=== PATIENT | male | born 1985 | race Caucasian/White ===

== ENCOUNTER 2018-04-09 12:42 | Emergency (ER) | payer MEDICAID, SELFPAY ==
[2018-04-09 12:47] VITALS: BP 101/71; PULSE 62; RESP 16; TEMP 36.7; O2SAT 97
--- NOTE | 2018-04-09 13:29 | W.ED.GENAD ---
Discharge Plan Disposition Patient Disposition: HOME Discharge Details Chief Complaint: DentalOral Clinical Impression: Dental infection Primary Care Provider: Jonah Arriaga ED Provider: Manpreet Gaffney Home Meds and New Rx's Prescriptions: New clindamycin HCl 150 mg capsule 450 mg PO TID 7 Days Qty: 63 RF: 0 Continue medical marijuana 1 pipe PO BID PRNQty: 1 RF: 5 cholecalciferol (vitamin D3) [D3-1999] 2,000 UNIT capsule 2,000 unit PO DAILY Qty: 90 RF: 3 glatiramer 40 mg/mL syringe 40 mg SC .three times per week Qty: 12 RF: 12 acetaminophen 325 mg Tablet 2 tab PO Q4H PRNRF: 0 Discharge Instructions Instructions: Dental Abscess (ED) Additional Instructions: Please contact your primary care physician and dentist to arrange follow-up. Return to the ER for any worsening or new concerning symptoms. Referrals: Jonah Arriaga [Primary Care Provider] - Medical Decision Making 32yo m with dental infection. No palpable abscess to I/D. PCN allergy. Will start clindamycin. Follow-up dentist. HPI General Mode of arrival: ambulatory. Date/Time Provider Initiated Documentation: 04/09/18 13:10. Limitations to Documentation: no limitations. Information obtained by: patient. HPI Narrative: 32-year-old male with history of MS, here with dental infection. Patient notes that he has had a cyst in his left upper incisor adjacent to tooth #10, for weeks to months. He thinks he sustained this after a dental lidocaine injection. The cyst ruptured yesterday and was draining. Draining has stopped. He denies pain but patient notes that he does not typically feel pain with his MS. He has no associated fever or swelling. Related Data Home Medications Medication Instructions Recorded Confirmed cholecalciferol (vitamin D3) 2,000 unit PO DAILY #90 cap 02/03/18 04/09/18 [D3-1999] glatiramer 40 mg/mL subcutaneous 40 mg SC .three times per week #12 03/23/18 04/09/18 syringe ml acetaminophen 2 tab PO Q4H PRN 04/09/18 04/09/18 clindamycin HCl 450 mg PO TID 7 Days #63 cap 04/09/18 Previous Rx's Medication Instructions Recorded cholecalciferol (vitamin D3) 2,000 unit PO DAILY #90 cap 02/03/18 [D3-2000] glatiramer 40 mg/mL subcutaneous 40 mg SC .three times per week #12 03/23/18 syringe ml clindamycin HCl 450 mg PO TID 7 Days #63 cap 04/09/18 Allergies Allergy/AdvReac Type Severity Reaction Status Date / Time Penicillins Allergy Severe see note Unverified 04/09/18 12:54 lactose AdvReac Intermediate GI distress Unverified 04/09/18 12:54 General Stated Complaint: DentalOral MATILDE: 4 Review of Systems Constitutional Denies fever(s) ENT Reports as per H[facility] Family History Mother Depression Father No problems noted. Sister No problems noted. Grandfather No problems noted. Grandfather Essential hypertension Heart disease Hyperlipidemia Cerebrovascular accident Asthma Grandmother Personal history of malignant neoplasm Grandmother Diabetes Asthma Son Growth hormone insufficiency Son No problems noted. Family History ADHD (attention deficit hyperactivity disorder) Alcohol abuse Anxiety Depression Medical History Multiple sclerosis (Chronic) Social History Smoking/Tobacco Use Status: Current-Occasional Exam Const General: cooperative and no acute distress HENMT Head: normocephalic and atraumatic Face and sinus: normal facial exam Mouth: moist mucous membranes Teeth and gingiva: poor dentition Throat: posterior oropharynx normal Other: dental caries noted, tooth #10 with hole, no palpable fluctuance Neck Neck: trachea midline and supple Resp Auscultation: clear to auscultation bilaterally, no rales, no rhonchi and no wheezes Cardio Jugular venous pressure: no JVD Rate: regular rate and not tachycardic Rhythm: regular rhythm Heart Sounds: no murmurs Skin General skin exam: no rashes or lesions noted Neuro General: alert, awake, oriented x3 and tone normal Course Vital Signs Temperature 36.7 C 04/09/18 12:47 Pulse 62 04/09/18 12:47 Respiratory Rate 16 04/09/18 12:47 Blood Pressure 101/71 04/09/18 12:47 Pulse Oximetry 97 04/09/18 12:47 Temperature 36.7 C 04/09/18 12:47 Temperature Source Temporal Artery Scan 04/09/18 12:47 Pulse 62 04/09/18 12:47 Respiratory Rate 16 04/09/18 12:47 Respiratory Effort 04/09/18 12:51 Blood Pressure 101/71 04/09/18 12:47 Blood Pressure Position Sitting 04/09/18 12:47 Pulse Oximetry 97 04/09/18 12:47 Oxygen Delivery Method Room Air 04/09/18 12:47 Oxygen Flow Rate 0 04/09/18 12:47 Pain Level 0 04/09/18 12:47 Comment 04/09/18 12:47
[2018-04-09 13:41] VITALS: BP 101/71; PULSE 62; RESP 16; TEMP 36.7; O2SAT 97
== END 2018-04-09 13:41 | disposition home or self-care (01) ==
PROVIDERS: Emergency Provider Student in an Organized Health Care Education/Training Program; PCP Family Medicine
DX: K04.7 Periapical abscess without sinus (principal); F17.210 Nicotine dependence, cigarettes, uncomplicated
CPT/HCPCS: 99283

== ENCOUNTER 2018-05-15 00:51 | Outpatient (CLI) | payer MEDICAID, SELFPAY ==
--- NOTE | 2018-05-15 13:48 | DI.MRI_ITS ---
SYMPTOMS/DIAGNOSIS: WORSENING OCT FINDINGS, MULTIPLE SCLEROSIS, G35 MRI OF THE BRAIN: Pre and post contrast examination was performed. Comparison 11/27/17. There are again seen several periventricular white matter lesions on the T 2 and FLAIR images. These appear stable compared to the prior examination. No new white matter lesions are seen. No enhancement of the lesions is noted following contrast administration. The diffusion weighted images show no evidence of an acute infarct. No intracranial hemorrhage is seen. No intracranial mass is present. The ventricles and sulci are stable. The pituitary gland appears grossly unremarkable. IMPRESSION: Stable white matter lesions. No abnormal enhancement or new lesions are identified at this time.
[2018-05-15] MEDS: Gadoterate meglumine 20 ML VIAL 11 ML IVP (14:53)
== END 2018-05-15 01:11 ==
PROVIDERS: PCP Family Medicine; Visit Provider Psychiatry & Neurology Neurology
DX: G35 Multiple sclerosis (principal)
CPT/HCPCS: 70553

== ENCOUNTER 2018-12-17 08:59 | Outpatient (CLI) | payer MEDICARE, MEDICAID, SELFPAY ==
[2018-12-17 10:56] LABS: Folate 17.3 ng/mL (8.6-20.0); Vitamin B12 590 pg/mL (193-986)
[2018-12-20 11:07] LABS: Thiamine (Vitamin B1), WB 125 nmol/L (70-180)
[2018-12-23 09:24] LABS: NMO/AQP4 IgG FACS Negative (Negative)
[2018-12-24 13:15] LABS: MOG FACS, S Negative (Negative)
== END 2018-12-17 09:19 ==
PROVIDERS: PCP Family Medicine; Visit Provider Psychiatry & Neurology Neurology
DX: H46.9 Unspecified optic neuritis (principal); G35 Multiple sclerosis; G62.9 Polyneuropathy, unspecified
CPT/HCPCS: 36415; 86255; 82607; 82746; 83891; 83892; 83894; 83898; 83909; 83912; 84425

== ENCOUNTER 2018-12-29 09:50 | Outpatient (CLI) | payer MEDICARE, MEDICAID, SELFPAY | END 2018-12-29 10:10 | PROVIDERS: PCP Family Medicine; Visit Provider Psychiatry & Neurology Neurology | DX: G35 Multiple sclerosis (principal); H46.8 Other optic neuritis | CPT/HCPCS: 36415; 81440; 83891; 83892; 83894; 83898; 83909; 83912 ==

== ENCOUNTER 2018-12-31 09:00 | Outpatient (CLI) | payer MEDICARE, MEDICAID, SELFPAY ==
[2019-01-12 13:14] LABS: LHON mtDNA Evaluation Negative
== END 2018-12-31 09:20 ==
PROVIDERS: PCP Family Medicine; Visit Provider Psychiatry & Neurology Neurology
DX: G35 Multiple sclerosis (principal); H46.8 Other optic neuritis
CPT/HCPCS: 81401; 83891; 83892; 83894; 83898; 83909; 83912

== ENCOUNTER 2019-05-19 01:16 | Outpatient (CLI) | payer MEDICARE, SELFPAY ==
--- NOTE | 2019-05-19 14:06 | DI.MRI_ITS ---
EXAM: MR BRAIN WO/W CLINICAL HISTORY: MS; stable G35. TECHNIQUE: Multiplanar multisequence MRI was performed. Post gadolinium T1 axial and coronal sequen maxx were also performed. COMPARISON: 15 May 2018. FINDINGS: There are stable areas of high signal in the periventricular white matter. No new lesions are ident ified. There are no abnormal lead enhancing lesions. Ventricles remain normal in size. There is no ev idence of hemorrhage. The vascular flow voids appear intact. The orbits, pituitary, sinuses and mast oid air cells are unremarkable. IMPRESSION: Stable white matter lesions consistent the patient's history of multiple sclerosis.
[2019-05-19] MEDS: Normal Saline Flush 10 ML SYR IVP (14:25)
[2019-05-19] MEDS: Gadoterate meglumine 20 ML VIAL 12 ML IVP (14:26)
== END 2019-05-19 01:36 ==
PROVIDERS: PCP Family Medicine; Visit Provider Psychiatry & Neurology Neurology
DX: G35 Multiple sclerosis (principal)
CPT/HCPCS: 70553

== ENCOUNTER → 2019-06-22 12:20 | Outpatient (BNVA) | payer MEDICARE, SELFPAY | PROVIDERS: PCP Family Medicine; Referring Provider Family Medicine; Visit Provider Psychiatry & Neurology Neurology | DX: G35 Multiple sclerosis (principal); F41.9 Anxiety disorder, unspecified; H46.9 Unspecified optic neuritis | CPT/HCPCS: 99214 ==

== ENCOUNTER → 2020-05-24 08:15 | Outpatient (BNVA) | payer MEDICARE, SELFPAY | PROVIDERS: PCP Family Medicine; Referring Provider Family Medicine; Visit Provider Psychiatry & Neurology Neurology | DX: G35 Multiple sclerosis (principal); F41.9 Anxiety disorder, unspecified; H46.9 Unspecified optic neuritis | CPT/HCPCS: 99213; 99442 ==

== ENCOUNTER → 2021-01-31 09:26 | Outpatient (BNVA) | payer OTHER, SELFPAY | PROVIDERS: PCP Family Medicine; Referring Provider Family Medicine; Visit Provider Psychiatry & Neurology Neurology | DX: G35 Multiple sclerosis (principal); H46.9 Unspecified optic neuritis; F41.9 Anxiety disorder, unspecified | CPT/HCPCS: 99214 ==

== ENCOUNTER → 2021-02-23 02:57 | Outpatient (CLI) | payer OTHER, SELFPAY ==
--- NOTE | 2021-02-23 07:06 | DI.MRI_ITS ---
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 CONTRAST MATERIAL: IV Contrast: 11 ML of Dotarem contrast administered. COMPARISON: MR MR BRAIN WO/W from 05/19/2019 FINDINGS: VENTRICLES AND EXTRA AXIAL SPACES: Normal in size and morphology for the patient's age. HEMORRHAGE: None. CEREBRAL PARENCHYMA: No focus of restricted diffusion to suggest acute infarct. No space-occupying le shreyas identified. There are stable white matter lesions seen on the FLAIR and T2 weighted images. No enhancement is seen following contrast administration. No new white matter lesions are present. MIDLINE SHIFT: None. BRAINSTEM/CEREBELLUM: Normal. CALVARIUM: Normal. ENHANCEMENT: No suspicious enhancement identified. VISUALIZED PARANASAL SINUSES/MASTOIDS: Clear. [place]: Normal flow void. PITUITARY GLAND: Unremarkable. OTHER FINDINGS: The orbits and retro-orbital soft tissues appear grossly unremarkable. IMPRESSION: Stable white matter lesions since 05/19/2019. DATA REPOSITORY:
[2021-02-23] MEDS: Normal Saline Flush 10 ML SYR IVP (11:11)
[2021-02-23] MEDS: Gadoterate meglumine 20 ML VIAL 11 ML IVP (11:12)
== END ==
PROVIDERS: PCP Family Medicine; Visit Provider Psychiatry & Neurology Neurology
DX: G35 Multiple sclerosis (principal); H46.9 Unspecified optic neuritis
CPT/HCPCS: 70553

== ENCOUNTER → 2021-08-08 11:16 | Outpatient (BNVA) | payer OTHER, SELFPAY | PROVIDERS: PCP Family Medicine; Visit Provider Psychiatry & Neurology Neurology | DX: H46.8 Other optic neuritis (principal); F41.9 Anxiety disorder, unspecified; G35 Multiple sclerosis | CPT/HCPCS: 99214 ==

== ENCOUNTER → 2022-02-06 10:14 | Outpatient (BNVA) | payer OTHER, SELFPAY | PROVIDERS: PCP Family Medicine; Referring Provider Family Medicine; Visit Provider Psychiatry & Neurology Neurology | DX: G35 Multiple sclerosis (principal); F41.9 Anxiety disorder, unspecified; H46.9 Unspecified optic neuritis; E55.9 Vitamin D deficiency, unspecified; R27.0 Ataxia, unspecified | CPT/HCPCS: 99215 ==

== ENCOUNTER 2022-02-18 03:39 | Outpatient (CLI) | payer OTHER, SELFPAY ==
[2022-02-18 09:36] LABS: Abs Immature Grans 0.04 10^3/uL (0.0-0.06); Absolute Basophil Count 0.09 10^3/uL (0.0-0.2); Absolute Eosinophil Count 0.22 10^3/uL (0.0-0.7); Absolute Lymphocyte Count 3.27 10^3/uL (1.2-3.4); Absolute Monocyte Count 1.09 10^3/uL (0.1-0.8); Absolute Neutrophil Count 6.65 10^3/uL (1.2-6.7); Basophils % 0.8; Eosinophils % 1.9; HGB 13.9 g/dL (13.5-17.5); Immature Grans % 0.4; Lymphocytes % 28.8; MCH 31.9 pg (27.0-33.0); MCHC 34.8 % (32.0-36.0); MCV 92 fL (80-95); MPV 9.4 fL (8.0-11.0); Monocytes % 9.6; Neutrophils % 58.5; Platelet Count 284 10^3/uL (130-400); RBC 4.36 10^6/uL (4.36-5.78); RDW 12.9 % (11.8-14.1); RDW-SD 43.8 fL; WBC 11.36 10^3/uL (4.4-10.8)
[2022-02-18 10:50] LABS: Vitamin D 25 Total 34.6 ng/mL (30-100)
[2022-02-18 10:52] LABS: ALT 20 U/L (16-63); AST 19 U/L (15-37); Alkaline Phosphatase 85 U/L (46-116); Anion Gap 10.2 mmol/L (3-11); BUN 17 mg/dL (7-18); Bilirubin, Total 0.5 mg/dL (0.2-1.0); CO2 25.8 mmol/L (21.0-32.0); CREATININE 0.9 mg/dL (0.70-1.30); Chloride 100 mmol/L (98-107); Estimated GFR 112.11 (mL/min/1.73m2); Glucose 81 mg/dL (74-106); Potassium 3.7 mmol/L (3.5-5.1); Sodium 136 mmol/L (136-145); Total Protein 7.4 g/dL (6.4-8.2); Vitamin B12 313 pg/mL (193-986)
[2022-02-19 10:35] LABS: HIV-1/2 Ag & Ab Screen Negative (Negative)
[2022-02-19 10:36] LABS: IgA 172 mg/dL (85-499); IgG 950 mg/dL (610-1,616); IgM 73 mg/dL (35-242)
[2022-02-19 11:05] LABS: Varicella IgG Antibody Positive (See Note)
[2022-02-19 11:17] LABS: HBs Antibody, Qual Positive (See Note); HBs Antibody, Quant >1000.0 mIU/mL (See Note); Hepatitis B Core Antibody Negative (Negative); Hepatitis B surface Ag Negative (Negative); Hepatitis C Ab w Rflx HCV PCR Negative (Negative)
[2022-02-19 14:54] LABS: Albumin 62.3 % (55.8-66.1); Albumin g/dL 4.4 g/dL (3.6-5.2); Total Protein 7.1 g/dL (6.3-8.2)
[2022-02-19 15:34] LABS: ANA Interpretation Negative (Negative)
[2022-02-19 16:12] LABS: CD19 9 % (6-24); CD20 9 % (6-24)
[2022-02-20 14:40] LABS: Vitamin E, Serum 8.7 mg/L (5.5 - 17.0)
[2022-02-20 16:46] LABS: Gliadin (Deamidated) Ab, IgA <10.0 U; Gliadin (Deamidated) Ab, IgG <10.0 U
[2022-02-21 12:59] LABS: Thiamine (Vitamin B1), WB 122 nmol/L (70-180)
[2022-02-21 16:24] LABS: Methylmalonic Acid 0.11 nmol/mL (<=0.40)
[2022-02-26 18:13] LABS: AGNA-1 Negative titer (<1:240); ANNA-1 Negative titer (<1:240); ANNA-2 Negative titer (<1:240); ANNA-3 Negative titer (<1:240); PCA-1 Negative titer (<1:240); PCA-2 Negative titer (<1:240); PCA-Tr Negative titer (<1:240)
== END 2022-02-18 03:40 | disposition home or self-care (01) ==
LOC: LBO 03:39
PROVIDERS: PCP Family Medicine; Visit Provider Psychiatry & Neurology Neurology
DX: G35 Multiple sclerosis (principal); H46.9 Unspecified optic neuritis; E55.9 Vitamin D deficiency, unspecified
CPT/HCPCS: 36415; 80053; 80186; 82306; 82390; 82784; 83516; 86341; 86704; 86706; 86787; 86803; 87340; 87389; 88184; 88185; 82607; 83519; 83520; 84165; 84425; 84446; 85025; 86038; 86256

== ENCOUNTER → 2022-03-25 10:20 | Outpatient (BNVA) | payer OTHER, SELFPAY | PROVIDERS: PCP Family Medicine; Referring Provider Family Medicine; Visit Provider Psychiatry & Neurology Neurology | DX: G35 Multiple sclerosis (principal); F41.9 Anxiety disorder, unspecified; H46.8 Other optic neuritis; R27.0 Ataxia, unspecified | CPT/HCPCS: 99214 ==

== ENCOUNTER 2022-03-28 11:42 | Emergency (ER) | payer OTHER, SELFPAY ==
[2022-03-28 11:46] VITALS: BP 157/80; PULSE 80; RESP 20; TEMP 37; O2SAT 100
--- NOTE | 2022-03-28 11:59 | ED.GENADUL_ITS ---
Discharge Plan Disposition Patient Disposition: STILL A PATIENT Condition: Stable Discharge Details Clinical Impression: Back pain Primary Care Provider: Jonah Arriaga ED Provider: Jonatan Nguyen Home Meds and New Rx's Prescriptions: No Action Shingrix (PF) 50 mcg/0.5 mL suspension for reconstitution 0.5 ml IM ONCE Qty: 1 0RF multivitamin Tablet 1 tab PO DAILY propelus PO medical marijuana 1 pipe PO BID PRNQty: 1 5RF cholecalciferol (vitamin D3) [D3-2000] 2,000 UNIT capsule 2,000 unit PO DAILY Qty: 90 3RF Shingrix Adjuvant Component-PF Suspension 0.5 ml IM DAILY Qty: 0.5 1RF Rx Instructions: given 2nd dose 2-6 months after first acetaminophen 325 mg Tablet 2 tab PO Q4H PRN Medical Decision Making This is a 36-year-old gentleman with past medical history of MS, urinary incontinence at times, presents to the ER reporting bilateral back and flank pain that began sometime overnight, reports his pain is a 4 out of 10, nothing really makes it worse or better. Patient is concerned that this is kidney pain and reports that he had similar pain previously when he began to vape. Patient reports that he has a history of MS, generalized weakness, occasional falls. Patient reported urinary incontinence but when asked further it would appear as though he needed to urinate very badly yesterday, on his way to the restroom he had a mechanical fall secondary to his overall weakness, reports this is nothing new or different, because of his fall could not get to the restroom fast enough and accidentally urinated. Clinically he appears well, nontoxic. He is afebrile, O2 sats are 100% on room air. He denies recent fever, illness, other trauma than the fall yesterday which caused no injury. He denies no IV drug use. He denies any bowel incontinence. When asked whether this could simply be some sort of back pain versus kidney pain he stated I know my body and I know where my kidneys are, but this is kidney pain. He states that yesterday she did take an oral Vicodin and he was told that they can be very hard on his kidneys and he is concerned that he may have caused some sort of kidney issue. Denies history of renal stones. Plan is to obtain IV access, obtain routine screening laboratory values and a urinalysis. Laboratory values reveal nonspecific leukocytosis of 14.58. Potassium of 3.3. Work-up was delayed as multiple attempts to obtain a urinalysis were made. Finally we BladderScan the patient, revealed 300 cc, discussed straight ca theterization and at that time he was able to provide a urine sample. He has asked multiple times that his IV be removed but we discussed this may be necessary. We also discussed potential medications. He is declining any medications at this time. His family questions if a medication for anxiety could be beneficial but he states they will not give me anything like that because it is too addictive. He declines Toradol for discomfort. Urinalysis reveals trace blood otherwise unremarkable. Discussed work-up thus far. Given his nonspecific leukocytosis, back pain, believe CT imaging is reasonable. He is neurologically intact, no evidence of cauda equina, fever, midline point tenderness, denies any IV drug use. I had a long discussion with the patient and family regarding CT imaging. Initially he is unsure if he would like this and wants to know exactly how much this will cost him. I told him I was unsure based upon his insurance and that I do not typically deal with the cost of a medical work-up. He states to his family of course they do not, this is a hospital, their job is to make us poor. Patient is now agreeable to obtaining CT imaging with IV contrast. Medical Records Medical records reviewed: Yes I reviewed the patient's medical records. Lab Data Lab results reviewed: Yes I reviewed the patient's lab results. Labs: Laboratory Tests Range/Units 03/28/22 03/28/22 03/28/22 12:05 12:10 12:10 WBC (4.4-10.8) 10^3/uL 14.58 H RBC (4.36-5.78) 10^6/uL 4.16 L Hgb (13.5-17.5) g/dL 13.3 L Hct (40.0-50.0) % 38.6 L MCV (80-95) fL 93 MCH (27.0-33.0) pg 32.0 MCHC (32.0-36.0) % 34.5 RDW (11.8-14.1) % 12.7 Plt Count (130-400) 10^3/uL 256 MPV (8.0-11.0) fL 9.3 Immature Gran % 0.0 Neutrophils % 94.0 Band Neutrophils % 0 Lymphocytes % 0.0 Atypical Lymphs % 0 Monocytes % 6.0 Eosinophils % 0.0 Basophils % 0.0 Nucleated RBC % (0.0-0.3) % 0.0 Absolute Neutrophils (1.2-6.7) 10^3/uL 13.71 H Absolute Lymphocytes (1.2-3.4) 10^3/uL 0.00 L Absolute Monocytes (0.1-0.8) 10^3/uL 0.87 H Absolute Eosinophils (0.0-0.7) 10^3/uL 0.00 Absolute Basophils (0.0-0.2) 10^3/uL 0.00 RBC Morphology Normal Sodium (136-145) mmol/L 139 Potassium (3.5-5.1) mmol/L 3.3 L Chloride (98-107) mmol/L 104 Carbon Dioxide (21.0-32.0) mmol/L 23.2 Anion Gap (3-11) mmol/L 11.8 H BUN (7-18) mg/dL 9 Creatinine (0.70-1.30) mg/dL 0.8 Est GFR (CKD-EPI 2020) (mL/min/1.73m2) 116.17 Glucose (74-106) mg/dL 115 H Calcium (8.5-10.1) mg/dL 8.9 Total Bilirubin (0.2-1.0) mg/dL 0.3 AST (15-37) U/L 16 ALT (16-63) U/L 16 Alkaline Phosphatase (46-116) U/L 77 Total Protein (6.4-8.2) g/dL 7.5 Albumin (3.4-5.0) g/dL 4.1 Lipase (73-393) U/L 29 Urine Color (Yellow) Yellow Urine Clarity (Clear) Clear Urine pH (5-8) 6.5 Ur Specific [place] (1.005-1.025) 1.020 Urine Protein (Negative) mg/dL Negative Urine Ketones (Negative) mg/dL Negative Urine Blood (Negative) Trace-lysed H Urine Nitrite (Negative) Negative Urine Bilirubin (Negative) Negative Urine Urobilinogen (Up TO 0.2) EU/dL 0.2 Ur Leukocyte Esterase (Negative) Negative Urine RBC (0-2) HPF 0-2 Urine WBC (0-5) HPF Negative Ur Epithelial Cells (Negative) HPF Rare Urine Crystals (Negative) HPF Negative Urine Bacteria (Negative) HPF Rare Urine Casts (Negative) LPF Negative Urine Mucus (Negative) Negative Urine Other (Negative) Negative Ur Culture Indicated? No Urine Glucose (Negative) mg/dL Negative HPI General Mode of arrival: ambulatory . Date/Time Provider Initiated Documentation: 03/28/22 11:43 . Limitations to Documentation: no limitations . Information obtained by: patient . History of Present Illness 36 year old M presents to the emergency department with the chief complaint of back pain, described as moderate, with intensity rated at 5. Quality is described as aching, and is localized to the back. Patient reports no radiation. Patient started experiencing this day(s) (1) and it has been constant. No relieving factors improve symptom(s), Movement worsens symptoms . Patient notes no other symptoms.. Patient did receive the following treatments prior to arrival, none Related Data Home Medications Medication Instructions Recorded Confirmed cholecalciferol (vitamin D3) 50 2,000 unit PO DAILY #90 caps 02/03/18 03/28/22 mcg (2,000 unit) capsule (D3) acetaminophen 325 mg tablet 2 tab PO Q4H PRN 04/09/18 03/28/22 multivitamin 1 tab PO DAILY 08/08/21 03/28/22 propelus PO 08/08/21 03/25/22 varicella-zoster glycoE vacc-AS01B 0.5 ml IM ONCE #1 ea 03/11/22 03/25/22 adj(PF) 50 mcg/0.5 mL IM susp, kit (Shingrix (PF)) adjuvant AS01B (PF)vial 1 of 2 0.5 ml IM DAILY #0.5 mL 03/18/22 03/25/22 (Shingrix Adjuvant Component (PF) intramuscular suspension) Previous Rx's Medication Instructions Recorded cholecalciferol (vitamin D3) 50 2,000 unit PO DAILY #90 caps 02/03/18 mcg (2,000 unit) capsule (D3-2000) varicella-zoster glycoE vacc-AS01B 0.5 ml IM ONCE #1 ea 03/11/22 adj(PF) 50 mcg/0.5 mL IM susp, kit (Shingrix (PF)) adjuvant AS01B (PF)vial 1 of 2 0.5 ml IM DAILY #0.5 mL 03/18/22 (Shingrix Adjuvant Component (PF) intramuscular suspension) Allergies Allergy/AdvReac Type Severity Reaction Status Date / Time Penicillins Allergy Severe see note Verified 03/25/22 10:24 lactose AdvReac Intermediate GI distress Verified 03/25/22 10:24 General Stated Complaint: FlankPain MATILDE: 3 Review of Systems Constitutional Constitutional: Denies fatigue, Denies fever(s) and Reports weakness (Baseline from MS) Cardiovascular Cardiovascular: Denies chest pain Respiratory Respiratory: Denies cough Gastrointestinal Gastrointestinal: Denies abdominal pain, Denies constipation, Denies diarrhea, Denies nausea and Denies vomiting Genitourinary Genitourinary: Denies hematuria and Denies dysuria Musculoskeletal Musculoskeletal: Reports back pain, Denies numbness and Denies tingling Integumentary/Breasts Skin/Breast: Denies rash Neurologic Neurologic: Denies numbness, Denies tingling and Reports weakness (Baseline from MS) Endocrine Endocrine: Denies fatigue PFSH All Active Problems (Updated 03/28/22 @ 15:05 by NETTA Egan) Back pain (Acute) Ataxia (Acute) Insomnia (Chronic) consider trial of unisom for sleep will query neuro about other options Incontinence (Acute) Optic neuropathy, bilateral (Chronic) Well adult (Acute) Multiple sclerosis (Chronic) Multiple sclerosis (Acute 05/22/16) Anxiety disorder, unspecified (Acute 02/21/16) Medical History (Updated 03/28/22 @ 15:05 by NETTA Egan) History of alcohol abuse sober/normal amounts since 2018 Moderate vision impairment-both eyes 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 Sister No problems noted. Maternal Grandfather No problems noted. Paternal Grandfather Essential hypertension Heart disease Hyperlipidemia Stroke Asthma Maternal Grandmother Lung cancer Paternal Grandmother Diabetes Asthma Son Growth hormone insufficiency Son No problems noted. Family History ADHD (attention deficit hyperactivity disorder) Alcohol abuse Anxiety Depression Social History Smoking/Tobacco Use Status: Former Tobacco Use tobacco type: e-cigarettes Quit Date: 06/09/17 Tobacco: How many years used: 20 Second Hand Exposure: Yes Smoking risk assessment performed?: Yes Alcohol Intake: current Alcohol Intake frequency: 0-2 drinks per day Alcohol type: beer and hard liquor Drug use: Daily Substance use type: marijuana Details: states he has taken vicodin given to him by a friend a few times but not regularly. 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 Pets and animals: No Sexually active: No Do you think of yourself as: straight/heterosexual Current gender identity: male What is your relationship status?: refused to answer How often do you talk on the phone with friends or family?: once per week How often do you get together with friends or relatives?: twice per week Do you belong to any clubs or organized social groups?: no Panel score (0-1 are the most socially isolated patients): 1 What type of physical activity do you participate in: none Luisana/Scientologist: None Special luisana needs: No Seatbelt use: sometimes Helmet use: No Drive intox or ride w/intox pickup driver: No Do you feel safe at home: Yes Do you feel safe in your relationship?: Yes Exam Const General: cooperative, comfortable and no acute distress Orientation: alert, awake and oriented x3 HENMT Head: normal to inspection, normocephalic and atraumatic Face and sinus: normal facial exam Mouth: moist mucous membranes Throat: posterior oropharynx normal Eyes General: appearance normal, both eyes and all related structures Conjunctivae: conjunctivae normal Neck Neck: normal visual inspection, full ROM, no meningeal signs, trachea midline and supple Resp Effort & Inspection: normal respiratory effort and able to speak in complete sentences Auscultation: clear to auscultation bilaterally Cardio Rate: regular rate Rhythm: regular rhythm GI Inspection: normal to inspection Palpation: soft, not firm, no guarding, no pulsatile masses and nontender Auscultation: normal bowel sounds Back/Spine/Pelvis Back: no CVA tenderness and back tenderness Skin General skin exam: no rashes or lesions noted Neuro General: patient alert, patient awake, patient oriented x3, moves all extremities and no focal motor deficits Cognition: normal cognition Speech: speech normal Motor: muscle tone normal throughout Sensory Exam: no sensory deficits noted Extrem General: normal to inspection, full ROM, capillary refill normal, no pedal edema and no calf tenderness Psych Appearance: grossly normal Mental Status: mental status grossly normal Course Vital Signs Vital signs: Vital Signs Temperature 37.0 C 03/28/22 11:46 Pulse 80 03/28/22 11:46 Respiratory Rate 20 03/28/22 11:46 Blood Pressure 157/80 H 03/28/22 11:46 Pulse Oximetry 100 03/28/22 11:46 Temperature 37.0 C 03/28/22 11:46 Temperature Source Temporal Artery Scan 03/28/22 11:46 Pulse 80 03/28/22 11:46 Respiratory Rate 20 03/28/22 11:46 Blood Pressure 157/80 H 03/28/22 11:46 Blood Pressure Position Sitting 03/28/22 11:46 Pulse Oximetry 100 03/28/22 11:46 Oxygen Delivery Method Room Air 03/28/22 11:46 Oxygen Flow Rate 0 03/28/22 11:46 Pain Level 6 03/28/22 11:46 PAWSS Have you Been Recently Intoxicated or Drunk Within the Last 30 days?: No Have you Ever Experienced Previous Episodes of Alcohol Withdrawal?: No Have you ever Experienced Withdrawal Seizures?: No Have you ever Experienced Delirium Tremens(DT)s?: No Have you ever undergone Alcohol Rehabilitation Treatment (i.e, inpt ot outp atient treatment programs)?: No Have you ever Experienced Blackouts?: No Have you ever Combined Alcohol with other Downers within the last 90 days?: No Have you ever Combined Alcohol with any other Substance of Abuse during the last 90 days?: No Positive Blood Alcohol level on Presentation? [PCS.BAL]: No Evidence of Increased Autonomic Activity (i.e. HR>120, tremor, sweating, agitation, nausea)?: No Result: 0
[2022-03-28 12:19] LABS: Abs Immature Grans 0.06 10^3/uL (0.0-0.06); HCT 38.6 % (40.0-50.0); HGB 13.3 g/dL (13.5-17.5); MCHC 34.5 % (32.0-36.0); MCV 93 fL (80-95); MPV 9.3 fL (8.0-11.0); Platelet Count 256 10^3/uL (130-400); RBC 4.16 10^6/uL (4.36-5.78); RDW 12.7 % (11.8-14.1); RDW-SD 43.4 fL; WBC 14.58 10^3/uL (4.4-10.8)
[2022-03-28 12:31] LABS: Absolute Monocyte Count 0.87 10^3/uL (0.1-0.8); Absolute Neutrophil Count 13.71 10^3/uL (1.2-6.7); Atypical Lymphocytes % 0; Bands % 0
[2022-03-28 12:32] LABS: Diff Comment Manual Differential; RBC Morphology Normal
[2022-03-28 12:36] LABS: ALT 16 U/L (16-63); AST 16 U/L (15-37); Albumin 4.1 g/dL (3.4-5.0); Alkaline Phosphatase 77 U/L (46-116); Anion Gap 11.8 mmol/L (3-11); BUN 9 mg/dL (7-18); Bilirubin, Total 0.3 mg/dL (0.2-1.0); CO2 23.2 mmol/L (21.0-32.0); CREATININE 0.8 mg/dL (0.70-1.30); Calcium 8.9 mg/dL (8.5-10.1); Chloride 104 mmol/L (98-107); Estimated GFR 116.17 (mL/min/1.73m2); Glucose 115 mg/dL (74-106); Lipase 29 U/L (73-393); Potassium 3.3 mmol/L (3.5-5.1); Sodium 139 mmol/L (136-145); Total Protein 7.5 g/dL (6.4-8.2)
[2022-03-28] MEDS: Normal Saline 1,000 ML 1000 ML IV (13:34)
[2022-03-28 14:16] LABS: Bilirubin Negative (Negative); Blood Trace-lysed (Negative); Clarity Clear (Clear); Glucose Negative (Negative); Ketones Negative (Negative); Leukocyte Esterase Negative (Negative); Nitrite Negative (Negative); Urobilinogen 0.2 EU/dL (Up TO 0.2); pH 6.5 (5-8)
[2022-03-28 14:22] LABS: Bacteria Rare HPF (Negative); C & S Indicated? No; Casts Negative LPF (Negative); Crystals Negative HPF (Negative); Epithelial Cells Rare HPF (Negative); Mucus Negative (Negative); Other Cells Negative (Negative); RBC 0-2 HPF (0-2); WBC Negative HPF (0-5)
[2022-03-28 15:25] VITALS: BP 104/50; PULSE 90; RESP 16; O2SAT 100
--- NOTE | 2022-03-28 15:52 | DI.CT_ITS ---
Exam(s) CT ABDOMEN PELVIS WO EXAM: CT ABDOMEN PELVIS WO INDICATION: back/flank pain, leukocytosis. COMPARISON: No exams were available for comparison TECHNIQUE: CT examination was performed without contrast administration. FINDINGS: Images obtained through the lung bases are unremarkable. Visualized portions of the liver and splee n appear intact. Visualized portions of the pancreas are unremarkable. Gallbladder and bile ducts are CT normal. Abdominal aorta is of normal diameter. No significant abdominal wall hernia. No significant abdominal or pelvic adenopathy. Appendix appears normal. Adrenals appear normal bilaterally. The kidneys are normal in size and shape. There is no evidence of a renal mass or hydronephrosis, th ere is no evidence of left nephrolithiasis or ureterolithiasis period There is right nephrolithiasis noted with couple of tiny nonobstructing calculi. No hydronephrosis o r ureterolithiasis. There is an apparent small right upper pole renal cyst . Urinary bladder is unremarkable in appearance. IMPRESSION: Nonobstructing right nephrolithiasis. No other significant findings.. RADIATION DOSE DELIVERED: 569.14mGy.cm DLP 569.14mGy.cm Total DLP !Error CTDIvol DATA REPOSITORY: All CT scans at this facility are submitted to the National Radiology Data Registry (NRDR) Dose Index Registry (DIR) with the [employer] (A[employer]). RADIATION OPTIMIZATION: All CT scans at this facility use at least one of these dose optimization te chniques: automated exposure control; mA and/or kV adjustment per patient size (includes targeted exa ms where dose is matched to clinical indication); or iterative reconstruction.
[2022-03-28 17:10] VITALS: BP 117/69; PULSE 91; TEMP 37.2; O2SAT 99
--- NOTE | 2022-03-28 17:26 | NUR.NOTE ---
Nursing Note: Referral faxed to PCP for low lumphacyte count; SHANTELLE.
[2022-03-28 17:31] LABS: Influenza A PCR Negative (Negative); Influenza B PCR Negative (Negative); RSV PCR Negative (Negative)
[2022-03-28 17:34] LABS: Source Nasopharynx
[2022-03-28 17:35] LABS: COVID-19 PCR Positive (Negative)
== END 2022-03-28 17:17 | disposition home or self-care (01) ==
PROVIDERS: Physician Assistant; Emergency Provider Physician Assistant; PCP Family Medicine
DX: M54.9 Dorsalgia, unspecified (principal); R10.9 Unspecified abdominal pain; D72.829 Elevated white blood cell count, unspecified; U07.1 COVID-19
CPT/HCPCS: 36415; 80053; 83690; 87637; 96360; 99284; 74176; 81003; 81015; 85025

== ENCOUNTER 2022-04-29 02:16 | Outpatient (RCR) | payer OTHER, SELFPAY ==
[2022-04-15] VITALS (8 sets, daily range): BP systolic 92–103; BP diastolic 56–67; PULSE 73–87; RESP 16–18; TEMP 35.6–36.4; O2SAT 98–100
[2022-04-15] MEDS: Acetaminophen 325 MG TAB 650 MG PO (08:23)
[2022-04-15] MEDS: diphenhydrAMINE 50 MG/ML VIAL IV (08:24)
[2022-04-15] MEDS: methylPREDNISolone SUCC 125 MG VIAL 100 MG IV (08:25)
[2022-04-15] MEDS: Normal Saline Flush 10 ML SYR IVP (08:25)
[2022-04-29] VITALS (8 sets, daily range): BP systolic 95–108; BP diastolic 59–68; PULSE 59–84; RESP 17–18; TEMP 36.2–37; O2SAT 98–100
[2022-04-29] MEDS: diphenhydrAMINE 50 MG/ML VIAL IV (08:22)
[2022-04-29] MEDS: Acetaminophen 325 MG TAB 650 MG PO (08:22)
[2022-04-29] MEDS: methylPREDNISolone SUCC 125 MG VIAL 100 MG IV (08:23)
[2022-04-29] MEDS: Normal Saline Flush 10 ML SYR IVP (08:23)
[2022-05-01 11:39] LABS: JC Virus DNA, QN PCR NOT DETECTED Copies/mL; JC Virus DNA, QN PCR NOT DETECTED Log cps/mL
== END 2022-05-08 23:59 | disposition home or self-care (01) ==
LOC: INF 02:16
PROVIDERS: PCP Family Medicine; Visit Provider Psychiatry & Neurology Neurology
DX: G35 Multiple sclerosis (principal)
CPT/HCPCS: 36415; 87799; 96365; 96366; 96374; 96375; J1200; J2350; J2930

== ENCOUNTER → 2022-06-17 09:51 | Outpatient (BNVA) | payer OTHER, SELFPAY | PROVIDERS: PCP Family Medicine; Referring Provider Family Medicine; Visit Provider Psychiatry & Neurology Neurology | DX: G35 Multiple sclerosis (principal); F41.9 Anxiety disorder, unspecified; H46.9 Unspecified optic neuritis; R27.0 Ataxia, unspecified; K59.00 Constipation, unspecified; R15.9 Full incontinence of feces | CPT/HCPCS: 99214 ==

== ENCOUNTER → 2022-08-19 07:45 | Outpatient (BNVA) | payer OTHER, SELFPAY | PROVIDERS: PCP Family Medicine; Referring Provider Family Medicine; Visit Provider Psychiatry & Neurology Neurology | DX: G35 Multiple sclerosis (principal); F41.9 Anxiety disorder, unspecified; H46.9 Unspecified optic neuritis; R27.0 Ataxia, unspecified; K59.00 Constipation, unspecified; R32 Unspecified urinary incontinence | CPT/HCPCS: 99214 ==

== ENCOUNTER 2022-10-01 00:53 | Outpatient (CLI) | payer OTHER, SELFPAY ==
--- NOTE | 2022-10-01 07:30 | DI.MRI_ITS ---
Exam(s) MR BRAIN WO/W EXAM: MR BRAIN WO/W CLINICAL HISTORY: MS,g35 TECHNIQUE: Multiplanar multisequence MRI of the brain was performed. CONTRAST MATERIAL: IV Contrast: 12 mL of Dotarem contrast administered. COMPARISON: MR MR BRAIN WO/W from 02/23/2021 FINDINGS: VENTRICLES AND EXTRA AXIAL SPACES: Normal in size and morphology for the patient's age. HEMORRHAGE: None. CEREBRAL PARENCHYMA: No focus of restricted diffusion to suggest acute infarct. No space-occupying le shreyas identified. There again seen multiple nonenhancing periventricular foci of hyperintense signal o n the FLAIR and T2 weighted images. These are stable. No new white matter lesions are seen. None o f these lesions show enhancement. MIDLINE SHIFT: None. BRAINSTEM/CEREBELLUM: Normal. CALVARIUM: Normal. ENHANCEMENT: No suspicious enhancement identified. VISUALIZED PARANASAL SINUSES/MASTOIDS: Clear. [place]: Normal flow void. PITUITARY GLAND: Unremarkable. OTHER FINDINGS: IMPRESSION: Stable white matter lesions since 02/23/2021. DATA REPOSITORY:
--- NOTE | 2022-10-01 07:33 | DI.MRI_ITS ---
Exam(s) MR CERVICAL SPINE WO/W EXAM: MR CERVICAL SPINE WO/W CLINICAL HISTORY: MS,g35 TECHNIQUE: Multiplanar multisequence MRI of the cervical spine was performed. CONTRAST MATERIAL: IV Contrast: 12 ML of Dotarem contrast administered. COMPARISON: MR CERVICAL THORACIC WO,W from 04/08/2016 FINDINGS: BONES: Vertebral body heights are maintained. Intervertebral disc spaces are normal. Alignment is nor mal. Bone marrow signal intensity is within normal limits. CERVICAL CORD: Craniovertebral junction is unremarkable. There again seen subtle areas of hyperintens e signal in the brainstem and the C1-C2 area of the spinal cord. No new foci of hyperintense signal is seen in the cervical spinal cord on the T2 images. No lesion is present. SOFT TISSUES: Unremarkable. ENHANCEMENT: No suspicious enhancement identified. C2-3: No disc herniation or bulge is identified. No significant central spinal canal or neural forami nal stenosis. C3-4: No disc herniation or bulge is identified. No significant central spinal canal or neural forami nal stenosis C4-5: No disc herniation or bulge is identified. No significant central spinal canal or neural forami nal stenosis C5-6: No disc herniation or bulge is identified. No significant central spinal canal or neural forami nal stenosis C6-7: No disc herniation or bulge is identified. No significant central spinal canal or neural forami nal stenosis C7-T1: No disc herniation or bulge is identified. No significant central spinal canal or neural jaymie inal stenosis IMPRESSION: 1. There again seen subtle areas of hyperintense signal seen on the T2 weighted images in the brainst em and upper cervical spine which appears stable. These area show no enhancement. No new lesions ar e seen in the spinal cord. 2. No disc herniations, central spinal canal or neural foraminal stenosis is seen in the cervical spi ne. DATA REPOSITORY:
[2022-10-01] MEDS: Normal Saline Flush 10 ML SYR IVP (10:38)
[2022-10-01] MEDS: Gadoterate meglumine 20 ML SYRINGE IVP (10:38)
== END 2022-10-01 01:13 ==
PROVIDERS: PCP Family Medicine; Visit Provider Psychiatry & Neurology Neurology
DX: G35 Multiple sclerosis (principal)
CPT/HCPCS: 70553; 72156

== ENCOUNTER 2022-10-14 02:45 | Outpatient (RCR) | payer OTHER, SELFPAY ==
[2022-10-14] VITALS (7 sets, daily range): BP systolic 93–132; BP diastolic 61–80; PULSE 63–79; RESP 17; TEMP 35.9–37.1; O2SAT 98–99
[2022-10-14] MEDS: Acetaminophen 325 MG TAB 650 MG PO (10:27)
[2022-10-14] MEDS: Normal Saline Flush 10 ML SYR IVP (10:27)
[2022-10-14] MEDS: methylPREDNISolone SUCC 125 MG VIAL 100 MG IVP (10:28)
[2022-10-14] MEDS: diphenhydrAMINE 50 MG/ML VIAL 25 MG IVP (10:28)
[2022-10-14 10:38] LABS: Abs Immature Grans 0.02 10^3/uL (0.0-0.06); Absolute Basophil Count 0.06 10^3/uL (0.0-0.2); Absolute Eosinophil Count 0.14 10^3/uL (0.0-0.7); Absolute Lymphocyte Count 2.41 10^3/uL (1.2-3.4); Absolute Monocyte Count 0.69 10^3/uL (0.1-0.8); Absolute Neutrophil Count 4.64 10^3/uL (1.2-6.7); Basophils % 0.8; Eosinophils % 1.8; HCT 40.3 % (40.0-50.0); HGB 14.1 g/dL (13.5-17.5); Immature Grans % 0.3; Lymphocytes % 30.3; MCH 31.6 pg (27.0-33.0); MCV 90 fL (80-95); MPV 9.2 fL (8.0-11.0); Monocytes % 8.7; Neutrophils % 58.1; Platelet Count 300 10^3/uL (130-400); RBC 4.46 10^6/uL (4.36-5.78); RDW 13.3 % (11.8-14.1); RDW-SD 43.9 fL; WBC 7.96 10^3/uL (4.4-10.8)
[2022-10-14] MEDS: OCRELIZUMAB 600 MG in Normal Saline 500 ML 260 MG IVPB (10:38)
[2022-10-14 10:55] LABS: ALT 24 U/L (16-63); AST 17 U/L (15-37); Alkaline Phosphatase 103 U/L (46-116); Anion Gap 8.2 mmol/L (3-11); BUN 16 mg/dL (7-18); Bilirubin, Total 0.3 mg/dL (0.2-1.0); CO2 26.8 mmol/L (21.0-32.0); CREATININE 0.9 mg/dL (0.70-1.30); Calcium 8.8 mg/dL (8.5-10.1); Chloride 103 mmol/L (98-107); Estimated GFR 111.42 (mL/min/1.73m2); Glucose 146 mg/dL (74-106); Potassium 3.7 mmol/L (3.5-5.1); Sodium 138 mmol/L (136-145); Total Protein 7.2 g/dL (6.4-8.2)
[2022-10-14 11:34] LABS: Vitamin D 25 Total 23.6 ng/mL (30-100)
[2022-10-14 18:11] LABS: Lab Add On Test DONE
[2022-10-14 18:34] LABS: Hemoglobin A1C 5.1 % (<5.7)
[2022-10-15 10:09] LABS: IgA 179 mg/dL (85-499); IgG 858 mg/dL (610-1616); IgM 48 mg/dL (35-242)
== END 2022-11-06 23:59 | disposition home or self-care (01) ==
LOC: INF 02:45
PROVIDERS: PCP Family Medicine; Visit Provider Psychiatry & Neurology Neurology
DX: G35 Multiple sclerosis (principal); R73.9 Hyperglycemia, unspecified; E55.9 Vitamin D deficiency, unspecified
CPT/HCPCS: 80053; 82306; 82784; 96365; 96366; 83036; 85025; J1200; J2350; J2930

== ENCOUNTER → 2022-12-16 10:21 | Outpatient (BNVA) | payer OTHER, SELFPAY | PROVIDERS: PCP Family Medicine; Referring Provider Family Medicine; Visit Provider Psychiatry & Neurology Neurology | DX: G35 Multiple sclerosis (principal); H46.9 Unspecified optic neuritis; R27.0 Ataxia, unspecified; K59.00 Constipation, unspecified; R32 Unspecified urinary incontinence | CPT/HCPCS: 99215 ==

== ENCOUNTER 2023-01-21 02:22 | Emergency (ER) | payer OTHER, SELFPAY ==
[2023-01-21 02:29] VITALS: BP 115/69; PULSE 88; RESP 22; TEMP 36.7; O2SAT 99
--- NOTE | 2023-01-21 02:43 | ED.GENADUL_ITS ---
Discharge Plan Disposition Patient Disposition: Home Discharge Details Chief Complaint: DentalOral Clinical Impression: Dental anomaly Primary Care Provider: Jonah Arriaga ED Provider: Delfino Keating Home Meds and New Rx's Prescriptions: No Action mirtazapine 7.5 mg tablet 7.5 mg PO QHS Qty: 90 3RF ocrelizumab 30 mg/mL solution 600 mg IV [id number] multivitamin Tablet 1 tab PO DAILY propelus PO medical marijuana 1 pipe PO BID PRNQty: 1 5RF cholecalciferol (vitamin D3) [D3-1999] 2,000 UNIT capsule 2,000 unit PO DAILY Qty: 90 3RF Shingrix Adjuvant Component-PF Suspension 0.5 ml IM DAILY Qty: 0.5 1RF Rx Instructions: given 2nd dose 2-6 months after first acetaminophen 325 mg Tablet 2 tab PO Q4H PRN primidone 50 mg tablet 50 mg PO QHS PRN (Reason: Sleep) Discharge Instructions Additional Instructions: Please follow-up closely with your dentist tomorrow. If you develop swelling pus drainage fevers chills or other abnormal symptoms please return to the emergency department Medical Decision Making 37-year-old male presents for dental check at recent tooth extraction site. Evidence of serous/mucinous cap at dental extraction site, no bleeding or purulent drainage, patient is tolerating secretions, normal respiratory effort no erythema or induration to face. Home care instructions and return precautions given. Patient will contact dentist in the morning HPI General Date/Time Provider Initiated Documentation: 01/21/23 02:35 . HPI Narrative: 37-year-old male history of MS, presents after tooth extraction yesterday, left upper molar, feels as if the area is hard and is worried about an infection or the tooth regrowing. No fevers no chills no purulent drainage, no bleeding. Related Data Home Medications Medication Instructions Recorded Confirmed cholecalciferol (vitamin D3) 50 2,000 unit PO DAILY #90 caps 02/03/18 01/21/23 mcg (2,000 unit) capsule (D3-1999) acetaminophen 325 mg tablet 2 tab PO Q4H PRN 04/09/18 01/21/23 multivitamin 1 tab PO DAILY 08/08/21 01/21/23 propelus PO 08/08/21 12/16/22 adjuvant AS01B (PF)vial 1 of 2 0.5 ml IM DAILY #0.5 mL 03/18/22 01/21/23 (Shingrix Adjuvant Component (PF) intramuscular suspension) mirtazapine 7.5 mg tablet 7.5 mg PO QHS #90 tabs 08/19/22 01/21/23 ocrelizumab 30 mg/mL intravenous 600 mg IV [id number] 12/16/22 01/21/23 solution primidone 50 mg tablet 50 mg PO QHS PRN Sleep 01/21/23 01/21/23 Previous Rx's Medication Instructions Recorded cholecalciferol (vitamin D3) 50 2,000 unit PO DAILY #90 caps 02/03/18 mcg (2,000 unit) capsule (D3-2000) adjuvant AS01B (PF)vial 1 of 2 0.5 ml IM DAILY #0.5 mL 03/18/22 (Shingrix Adjuvant Component (PF) intramuscular suspension) mirtazapine 7.5 mg tablet 7.5 mg PO QHS #90 tabs 08/19/22 Allergies Allergy/AdvReac Type Severity Reaction Status Date / Time Penicillins Allergy Severe see note Verified 12/16/22 10:24 lactose AdvReac Intermediate GI distress Verified 12/16/22 10:24 General Stated Complaint: DentalOral MATILDE: 5 Review of Systems Narrative: Review of Systems Constitutional: negative Eyes: negative ENT: Dental issue Cardiovascular: negative Respiratory: negative Gastrointestinal: negative : negative Musculoskeletal: negative Skin: negative Neurologic: negative Psych: negative PFSH All Active Problems (Updated 01/21/23 @ 02:48 by Delfino Keating MD) Dental anomaly (Acute) Hyperglycemia (Acute) Constipation (Acute) Ataxia (Acute) Insomnia (Chronic) consider trial of unisom for sleep will query neuro about other options Incontinence (Acute) Optic neuropathy, bilateral (Chronic) Well adult (Acute) Multiple sclerosis (Chronic) Multiple sclerosis (Acute 05/22/16) Anxiety disorder, unspecified (Acute 02/21/16) Medical History (Updated 01/21/23 @ 02:48 by Delfino Keating MD) History of alcohol abuse sober/normal amounts since 2018 Moderate vision impairment-both eyes 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 Sister No problems noted. Maternal Grandfather No problems noted. Paternal Grandfather Essential hypertension Heart disease Hyperlipidemia Stroke Asthma Maternal Grandmother Lung cancer Paternal Grandmother Diabetes Asthma Son Growth hormone insufficiency Son No problems noted. Family History ADHD (attention deficit hyperactivity disorder) Alcohol abuse Anxiety Depression Social History Smoking/Tobacco Use Status: Current every day Tobacco Type: e-cigarettes Tobacco: How many years used: 20 Second Hand Exposure: Yes Smoking risk assessment performed?: Yes Alcohol Intake: current Alcohol Intake frequency: 0-2 drinks per day Alcohol type: beer and hard liquor Drug use: Daily Substance use type: marijuana Details: states he has taken vicodin given to him by a friend a few times but not regularly. 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 Pets and animals: No Sexually active: No Do you think of yourself as: straight/heterosexual Current gender identity: male What is your relationship status?: refused to answer How often do you talk on the phone with friends or family?: once per week How often do you get together with friends or relatives?: twice per week Do you belong to any clubs or organized social groups?: no Panel score (0-1 are the most socially isolated patients): 1 What type of physical activity do you participate in: none Luisana/Adventist: None Special luisana needs: No Seatbelt use: sometimes Helmet use: No Drive intox or ride w/intox pick up truck driver: No Do you feel safe at home: Yes Do you feel safe in your relationship?: Yes Exam Narrative Exam Narrative: Physical Examination General: alert, awake, cooperative, resting comfortably, no acute distress HEENT: normocephalic, atraumatic; PERRL, EOM intact, conjunctiva normal; no nasal discharge; moist mucous membranes, oral and pharyngeal mucosa normal, tolerating secretions; area of left upper molar extraction, serous/mucinous cap has formed over socket, no purulent drainage, no bleeding Neck: supple, trachea midline; full ROM Chest: normal to inspection Respiratory: Normal respiratory effort, normal speech Course Vital Signs Vital signs: Vital Signs Temperature 36.7 C 01/21/23 02:29 Pulse 88 01/21/23 02:29 Respiratory Rate 22 01/21/23 02:29 Blood Pressure 115/69 01/21/23 02:29 Pulse Oximetry 99 01/21/23 02:29 Temperature 36.7 C 01/21/23 02:29 Temperature Source Temporal Artery Scan 01/21/23 02:29 Pulse 88 01/21/23 02:29 Respiratory Rate 22 01/21/23 02:29 Respiratory Effort Normal, Non-Labored 01/21/23 02:34 Blood Pressure 115/69 01/21/23 02:29 Blood Pressure Position Sitting 01/21/23 02:29 Pulse Oximetry 99 01/21/23 02:29 Oxygen Delivery Method Room Air 01/21/23 02:29 Oxygen Flow Rate 0 01/21/23 02:29 Pain Level 0 01/21/23 02:34 PAWSS Have you Been Recently Intoxicated or Drunk Within the Last 30 days?: No Have you Ever Experienced Previous Episodes of Alcohol Withdrawal?: No Have you ever Experienced Withdrawal Seizures?: No Have you ever Experienced Delirium Tremens(DT)s?: No Have you ever undergone Alcohol Rehabilitation Treatment (i.e, inpt ot outpatient treatment programs)?: No Have you ever Experienced Blackouts?: No Have you ever Combined Alcohol with other Downers within the last 90 days?: No Have you ever Combined Alcohol with any other Substance of Abuse during the last 90 days?: No Positive Blood Alcohol level on Presentation? [PCS.BAL]: No Evidence of Increased Autonomic Activity (i.e. HR>120, tremor, sweating, agitation, nausea)?: No Result: 0
== END 2023-01-21 02:59 | disposition home or self-care (01) ==
PROVIDERS: Emergency Provider Emergency Medicine; PCP Family Medicine
DX: K08.89 Other specified disorders of teeth and supporting structures (principal)
CPT/HCPCS: 99281; 99282

== ENCOUNTER 2023-01-27 04:32 | Outpatient (CLI) | payer OTHER, SELFPAY ==
[2023-01-27 12:38] LABS: TSH (W/Ref FT4) 0.68 uIU/mL (0.36-3.74)
== END 2023-01-27 04:33 | disposition home or self-care (01) ==
LOC: LOS 04:32
PROVIDERS: PCP Family Medicine; Visit Provider Psychiatry & Neurology Neurology
DX: R53.83 Other fatigue; F41.9 Anxiety disorder, unspecified; G35 Multiple sclerosis
CPT/HCPCS: 36415; 84443

== ENCOUNTER → 2023-02-17 07:27 | Outpatient (BNVA) | payer OTHER, SELFPAY | PROVIDERS: PCP Family Medicine; Referring Provider Family Medicine; Visit Provider Psychiatry & Neurology Neurology | DX: G35 Multiple sclerosis (principal); H46.9 Unspecified optic neuritis; R27.0 Ataxia, unspecified; K59.00 Constipation, unspecified; R32 Unspecified urinary incontinence; G47.00 Insomnia, unspecified; R53.83 Other fatigue | CPT/HCPCS: 99214 ==

== ENCOUNTER 2023-04-28 04:01 | Outpatient (RCR) | payer OTHER, SELFPAY ==
[2023-04-28] VITALS (7 sets, daily range): BP systolic 97–111; BP diastolic 61–76; PULSE 64–85; RESP 16; TEMP 35.8–36.8; O2SAT 99–100
[2023-04-28] MEDS: diphenhydrAMINE 50 MG/ML VIAL IVP (10:22)
[2023-04-28] MEDS: Acetaminophen 325 MG TAB 650 MG PO (10:22)
[2023-04-28] MEDS: methylPREDNISolone SUCC 125 MG VIAL IVP (10:23)
[2023-04-28] MEDS: Normal Saline Flush 10 ML SYR IVP (10:23)
[2023-04-28] MEDS: OCRELIZUMAB 600 MG in Normal Saline 500 ML 100 MG IVPB (10:38)
[2023-04-28 10:49] LABS: Abs Immature Grans 0.02 10^3/uL (0.0-0.06); Absolute Basophil Count 0.07 10^3/uL (0.0-0.2); Absolute Eosinophil Count 0.16 10^3/uL (0.0-0.7); Absolute Lymphocyte Count 2.73 10^3/uL (1.2-3.4); Absolute Monocyte Count 0.84 10^3/uL (0.1-0.8); Absolute Neutrophil Count 4.34 10^3/uL (1.2-6.7); Basophils % 0.9; HCT 41.1 % (40.0-50.0); Immature Grans % 0.2; Lymphocytes % 33.5; MCH 31.7 pg (27.0-33.0); MCHC 34.1 % (32.0-36.0); MCV 93 fL (80-95); MPV 9.5 fL (8.0-11.0); Monocytes % 10.3; Neutrophils % 53.1; Platelet Count 320 10^3/uL (130-400); RBC 4.41 10^6/uL (4.36-5.78); WBC 8.16 10^3/uL (4.4-10.8)
[2023-04-28 11:34] LABS: Vitamin D 25 Total 30.4 ng/mL (30-100)
[2023-04-28 11:35] LABS: ALT 19 U/L (16-63); AST 15 U/L (15-37); Albumin 3.9 g/dL (3.4-5.0); Alkaline Phosphatase 106 U/L (46-116); Anion Gap 6.8 mmol/L (3-11); BUN 17 mg/dL (7-18); Bilirubin, Total 0.4 mg/dL (0.2-1.0); CO2 29.2 mmol/L (21.0-32.0); CREATININE 0.8 mg/dL (0.70-1.30); Calcium 9.2 mg/dL (8.5-10.1); Chloride 103 mmol/L (98-107); Estimated GFR 115.45 (mL/min/1.73m2); Glucose 135 mg/dL (74-106); Potassium 3.5 mmol/L (3.5-5.1); Sodium 139 mmol/L (136-145); Total Protein 7.1 g/dL (6.4-8.2); Vitamin B12 275 pg/mL (193-986)
[2023-04-29 10:28] LABS: IgA 170 mg/dL (85-499); IgG 807 mg/dL (610-1616); IgM 46 mg/dL (35-242)
== END 2023-05-08 23:59 | disposition home or self-care (01) ==
LOC: INF 04:01
PROVIDERS: PCP Family Medicine; Visit Provider Psychiatry & Neurology Neurology
DX: G35 Multiple sclerosis (principal); E55.9 Vitamin D deficiency, unspecified
CPT/HCPCS: 36415; 80053; 82306; 82784; 96365; 96366; 96374; 96375; 82607; 85025; J1200; J2350; J2930

== ENCOUNTER → 2023-05-19 06:53 | Outpatient (BNVA) | payer OTHER, SELFPAY | PROVIDERS: PCP Family Medicine; Visit Provider Psychiatry & Neurology Neurology | DX: G35 Multiple sclerosis (principal); F41.9 Anxiety disorder, unspecified; K59.00 Constipation, unspecified; H46.9 Unspecified optic neuritis; R27.0 Ataxia, unspecified; R32 Unspecified urinary incontinence | CPT/HCPCS: 99443 ==

== ENCOUNTER → 2023-07-21 08:17 | Outpatient (BNVA) | payer OTHER, SELFPAY | PROVIDERS: PCP Family Medicine; Referring Provider Family Medicine; Visit Provider Psychiatry & Neurology Neurology | DX: F41.1 Generalized anxiety disorder (principal); G35 Multiple sclerosis; H46.9 Unspecified optic neuritis; R27.0 Ataxia, unspecified; K59.00 Constipation, unspecified; R32 Unspecified urinary incontinence | CPT/HCPCS: 99214 ==

== ENCOUNTER → 2023-09-08 10:48 | Outpatient (BNVA) | payer OTHER, SELFPAY | PROVIDERS: PCP Family Medicine; Referring Provider Family Medicine; Visit Provider Psychiatry & Neurology Neurology | DX: G35 Multiple sclerosis (principal); F41.9 Anxiety disorder, unspecified; R27.0 Ataxia, unspecified; K59.00 Constipation, unspecified; R32 Unspecified urinary incontinence; F41.1 Generalized anxiety disorder | CPT/HCPCS: 99215 ==

== ENCOUNTER → 2023-09-29 02:12 | Outpatient (CLI) | payer OTHER, SELFPAY ==
--- NOTE | 2023-09-29 07:00 | DI.MRI_ITS ---
Exam(s) MR BRAIN WO EXAM: MR BRAIN WO CLINICAL HISTORY: clinically stable multiple sclerosis, g35 TECHNIQUE: Multiplanar multisequence MRI of the brain was performed. COMPARISON: MR MR BRAIN WO/W from 05/19/2019 MR MR BRAIN WO/W from 02/23/2021 MR MR BRAIN WO/W from 10/01/2022 FINDINGS: VENTRICLES AND EXTRA AXIAL SPACES: Normal in size and morphology for the patient's age. MIDLINE SHIFT: None. CEREBRAL PARENCHYMA: No focus of restricted diffusion to suggest acute infarct. No space-occupying le shryeas identified. There are stable white matter lesions seen in the periventricular region on the FLAI R and T2 weighted images. No new white matter lesions are identified. HEMORRHAGE: None. BRAINSTEM/CEREBELLUM: Normal. CALVARIUM: Normal. VISUALIZED PARANASAL SINUSES/MASTOIDS:Small mucous retention cysts or polyps in the left maxillary si nus. FALSE PASS OF SEAMAN: Normal flow void. PITUITARY GLAND: Unremarkable. OTHER FINDINGS: None. IMPRESSION: Stable appearance of the brain since 10/01/2022. DATA REPOSITORY:
== END ==
PROVIDERS: PCP Family Medicine; Visit Provider Psychiatry & Neurology Neurology
DX: G35 Multiple sclerosis (principal)
CPT/HCPCS: 70551

== ENCOUNTER 2023-10-29 04:57 | Outpatient (RCR) | payer OTHER, SELFPAY ==
[2023-10-29 09:32] LABS: Abs Immature Grans 0.01 10^3/uL (0.0-0.06); Absolute Basophil Count 0.06 10^3/uL (0.0-0.2); Absolute Eosinophil Count 0.18 10^3/uL (0.0-0.7); Absolute Lymphocyte Count 2.11 10^3/uL (1.2-3.4); Absolute Monocyte Count 0.81 10^3/uL (0.1-0.8); Absolute Neutrophil Count 4.37 10^3/uL (1.2-6.7); Basophils % 0.8 %; Eosinophils % 2.4 %; HCT 41.4 % (40.0-50.0); HGB 14.3 g/dL (13.5-17.5); Immature Grans % 0.1 %; MCH 32.4 pg (27.0-33.0); MCHC 34.5 % (32.0-36.0); MCV 94 fL (80-95); MPV 9.6 fL (8.0-11.0); Monocytes % 10.7 %; Platelet Count 315 10^3/uL (130-400); RBC 4.41 10^6/uL (4.36-5.78); RDW 12.9 % (11.8-14.1); RDW-SD 44.5 fL; WBC 7.54 10^3/uL (4.4-10.8)
[2023-10-29] MEDS: methylPREDNISolone SUCC 125 MG VIAL IVP (09:32)
[2023-10-29] MEDS: diphenhydrAMINE 50 MG/ML VIAL IVP (09:32)
[2023-10-29] MEDS: Acetaminophen 325 MG TAB 650 MG PO (09:33)
[2023-10-29 09:40] VITALS: BP 104/68; PULSE 70; RESP 16; TEMP 37; O2SAT 96
[2023-10-29] MEDS: OCRELIZUMAB 600 MG in Normal Saline 500 ML 250 MG IVPB (09:43)
[2023-10-29 09:51] LABS: ALT 24 U/L (16-63); AST 15 U/L (15-37); Alkaline Phosphatase 113 U/L (46-116); Anion Gap 9.2 mmol/L (3-11); BUN 12 mg/dL (7-18); Bilirubin, Total 0.4 mg/dL (0.2-1.0); CO2 27.8 mmol/L (21.0-32.0); CREATININE 0.7 mg/dL (0.70-1.30); Calcium 8.7 mg/dL (8.5-10.1); Chloride 102 mmol/L (98-107); Estimated GFR 119.46 (mL/min/1.73m2); Glucose 94 mg/dL (74-106); Potassium 3.6 mmol/L (3.5-5.1); Sodium 139 mmol/L (136-145); Total Protein 7.2 g/dL (6.4-8.2)
[2023-10-29 10:15] VITALS: BP 98/59; PULSE 55; RESP 18; TEMP 36.7; O2SAT 100
[2023-10-29 10:30] VITALS: BP 98/62; PULSE 55; RESP 17; TEMP 36.7; O2SAT 98
[2023-10-29 10:55] VITALS: BP 95/58; PULSE 58; RESP 17; TEMP 35.8; O2SAT 98
[2023-10-29 11:27] VITALS: BP 93/62; PULSE 56; RESP 17; TEMP 36.6; O2SAT 99
[2023-10-29] MEDS: Normal Saline Flush 10 ML SYR IVP (11:30)
[2023-10-29 11:57] VITALS: BP 99/63; PULSE 58; RESP 17; TEMP 36.5; O2SAT 99
[2023-10-30 08:53] LABS: IgA 158 mg/dL (85-499); IgG 717 mg/dL (610-1616); IgM 34 mg/dL (35-242)
== END 2023-11-07 23:59 | disposition home or self-care (01) ==
LOC: INF 04:57
PROVIDERS: PCP Family Medicine; Visit Provider Psychiatry & Neurology Neurology
DX: G35 Multiple sclerosis (principal); Z45.2 Encounter for adjustment and management of vascular access device
CPT/HCPCS: 36415; 36591; 80053; 82784; 96365; 96366; 85025; J1200; J2350; J2919

== ENCOUNTER → 2023-11-17 10:17 | Outpatient (BNVA) | payer OTHER, SELFPAY | PROVIDERS: PCP Family Medicine; Visit Provider Psychiatry & Neurology Neurology | DX: G35 Multiple sclerosis (principal); H46.9 Unspecified optic neuritis; R27.0 Ataxia, unspecified; K59.00 Constipation, unspecified; R32 Unspecified urinary incontinence; F41.1 Generalized anxiety disorder | CPT/HCPCS: 99215 ==

== ENCOUNTER → 2024-05-20 09:46 | Outpatient (BNVA) | payer OTHER, SELFPAY | PROVIDERS: PCP Family Medicine; Referring Provider Family Medicine; Visit Provider Psychiatry & Neurology Neurology | DX: G35 Multiple sclerosis (principal); F41.1 Generalized anxiety disorder; H46.9 Unspecified optic neuritis; R27.0 Ataxia, unspecified; K59.00 Constipation, unspecified; R32 Unspecified urinary incontinence | CPT/HCPCS: 99215 ==

== ENCOUNTER 2024-06-03 00:20 | Outpatient (RCR) | payer OTHER, SELFPAY ==
[2024-06-03] MEDS: Normal Saline Flush 10 ML SYR IVP (09:05)
[2024-06-03] MEDS: diphenhydrAMINE 50 MG/ML VIAL IVP (09:05)
[2024-06-03] MEDS: methylPREDNISolone SUCC 125 MG VIAL IVP (09:05)
[2024-06-03] MEDS: Acetaminophen 325 MG TAB 650 MG PO (09:06)
[2024-06-03 09:15] VITALS: BP 110/70; PULSE 68; RESP 17; TEMP 37.7; O2SAT 100
[2024-06-03] MEDS: OCRELIZUMAB 600 MG in Normal Saline 500 ML 100 MG IVPB (09:23)
[2024-06-03 09:30] VITALS: BP 105/68; PULSE 70; RESP 18; TEMP 36.9; O2SAT 100
[2024-06-03 09:45] VITALS: BP 98/66; PULSE 68; RESP 16; TEMP 37.4; O2SAT 100
[2024-06-03 10:04] LABS: Abs Immature Grans 0.02 10^3/uL (0.0-0.06); Absolute Basophil Count 0.05 10^3/uL (0.0-0.2); Absolute Eosinophil Count 0.11 10^3/uL (0.0-0.7); Absolute Monocyte Count 0.87 10^3/uL (0.1-0.8); Absolute Neutrophil Count 4.39 10^3/uL (1.2-6.7); Basophils % 0.7 %; Eosinophils % 1.5 %; HCT 42.6 % (40.0-50.0); HGB 14.8 g/dL (13.5-17.5); Immature Grans % 0.3 %; Lymphocytes % 27.9 %; MCH 32.1 pg (27.0-33.0); MCHC 34.7 % (32.0-36.0); MCV 92 fL (80-95); MPV 9.8 fL (8.0-11.0); Monocytes % 11.5 %; Neutrophils % 58.1 %; Platelet Count 347 10^3/uL (130-400); RBC 4.61 10^6/uL (4.36-5.78); RDW 13.2 % (11.8-14.1); RDW-SD 44.5 fL; WBC 7.54 10^3/uL (4.4-10.8)
[2024-06-03 10:15] VITALS: BP 101/67; PULSE 63; RESP 16; TEMP 37; O2SAT 98
[2024-06-03 10:55] LABS: ALT 18 U/L (16-63); AST 14 U/L (15-37); Albumin 4.1 g/dL (3.4-5.0); Alkaline Phosphatase 106 U/L (46-116); Anion Gap 7.2 mmol/L (3-11); BUN 11 mg/dL (7-18); Bilirubin, Total 0.38 mg/dL (0.2-1.0); CO2 31.8 mmol/L (21.0-32.0); CREATININE 0.7 mg/dL (0.70-1.30); Calcium 9.4 mg/dL (8.5-10.1); Chloride 105 mmol/L (98-107); Estimated GFR 119.46 (mL/min/1.73m2); Glucose 83 mg/dL (74-106); Potassium 3.5 mmol/L (3.5-5.1); Sodium 144 mmol/L (136-145); Total Protein 7.4 g/dL (6.4-8.2); Vitamin B12 535 pg/mL (193-986)
[2024-06-03 11:15] VITALS: BP 98/62; PULSE 64; RESP 17; TEMP 36.9; O2SAT 93
[2024-06-04 09:42] LABS: IgA 159 mg/dL (85-499); IgG 692 mg/dL (610-1616); IgM 32 mg/dL (35-242)
[2024-06-04 14:25] LABS: CD19 <1 % (6-24); CD20 <1 % (6-24)
== END 2024-06-08 23:59 | disposition home or self-care (01) ==
LOC: INF 00:20
PROVIDERS: PCP Family Medicine; Visit Provider Psychiatry & Neurology Neurology
DX: G35 Multiple sclerosis (principal)
CPT/HCPCS: 80053; 82784; 88184; 88185; 96365; 96366; 82607; 85025; J1200; J2350; J2919

== ENCOUNTER → 2025-02-17 13:30 | Outpatient (BNVA) | payer MEDICARE, SELFPAY | PROVIDERS: PCP Nurse Practitioner Family; Referring Provider Nurse Practitioner Family; Visit Provider Psychiatry & Neurology Neurology | DX: G35 Multiple sclerosis (principal); F41.1 Generalized anxiety disorder; H46.9 Unspecified optic neuritis; R27.0 Ataxia, unspecified; K59.00 Constipation, unspecified; R32 Unspecified urinary incontinence | CPT/HCPCS: 99214 ==

== ENCOUNTER 2025-02-24 00:21 | Outpatient (CLI) | payer MEDICARE, SELFPAY ==
[2025-02-24] MEDS: methylPREDNISolone SUCC 125 MG VIAL IVP (09:10)
[2025-02-24] MEDS: Acetaminophen 325 MG TAB 650 MG PO (09:10)
[2025-02-24] MEDS: Water,Injection,Bacteriostatic 30 ML VIAL (09:11)
[2025-02-24] MEDS: Normal Saline Flush 10 ML SYR IVP (09:11)
[2025-02-24] MEDS: diphenhydrAMINE 50 MG/ML VIAL IVP (09:11)
[2025-02-24] MEDS: OCRELIZUMAB 600 MG in Normal Saline 500 ML 100 MG IVPB (09:25)
[2025-02-24 09:30] VITALS: BP 105/71; PULSE 61; RESP 18; TEMP 36.6; O2SAT 99
[2025-02-24 09:45] VITALS: BP 107/71; PULSE 54; RESP 18; TEMP 36.5; O2SAT 100
[2025-02-24 09:49] LABS: Abs Immature Grans 0.01 10^3/uL (0.0-0.06); HCT 43.8 % (40.0-50.0); HGB 14.6 g/dL (13.5-17.5); Immature Grans % 0.1 %; MCH 30.9 pg (27.0-33.0); MCHC 33.3 % (32.0-36.0); MCV 93 fL (80-95); MPV 9.7 fL (8.0-11.0); Platelet Count 341 10^3/uL (130-400); RBC 4.73 10^6/uL (4.36-5.78); RDW 12.4 % (11.8-14.1); RDW-SD 42.2 fL; WBC 8.53 10^3/uL (4.4-10.8)
[2025-02-24 10:00] VITALS: BP 109/72; PULSE 54; RESP 18; TEMP 36.4; O2SAT 100
[2025-02-24 10:04] LABS: ALT 28 U/L (16-63); AST 25 U/L (15-37); Albumin 4.3 g/dL (3.4-5.0); Alkaline Phosphatase 90 U/L (46-116); Anion Gap 6.3 mmol/L (3-11); BUN 10 mg/dL (7-18); Bilirubin, Total 0.4 mg/dL (0.2-1.0); CO2 31.7 mmol/L (21.0-32.0); Calcium 9.1 mg/dL (8.5-10.1); Chloride 102 mmol/L (98-107); Estimated GFR 118.72 (mL/min/1.73m2); Glucose 99 mg/dL (74-106); Potassium 3.9 mmol/L (3.5-5.1); Sodium 140 mmol/L (136-145); Total Protein 7.4 g/dL (6.4-8.2)
[2025-02-24 10:30] VITALS: BP 96/67; PULSE 56; RESP 18; TEMP 36.4; O2SAT 98
[2025-02-24 10:59] VITALS: BP 96/61; PULSE 68; RESP 18; TEMP 36.3; O2SAT 99
[2025-02-24 11:30] VITALS: BP 100/64; PULSE 62; RESP 18; TEMP 36.4; O2SAT 100
[2025-02-24 18:24] LABS: HBs Antibody, Qual Positive (See Note); HBs Antibody, Quant >1000.0 mIU/mL (See Note); Hepatitis C Ab w Rflx HCV PCR Negative (Negative)
[2025-02-25 15:17] LABS: CD19 1 % (6-24); CD20 1 % (6-24)
== END 2025-02-24 00:22 | disposition home or self-care (01) ==
LOC: INF 00:22
PROVIDERS: PCP Nurse Practitioner Family; Visit Provider Psychiatry & Neurology Neurology
DX: G35 Multiple sclerosis (principal)
CPT/HCPCS: 36415; 80053; 82784; 86704; 86706; 86803; 87340; 88184; 88185; 96365; 96366; 85025; J1200; J2350; J2919

== ENCOUNTER 2025-03-24 05:29 | Outpatient (CLI) | payer MEDICARE, SELFPAY ==
--- NOTE | 2025-03-24 07:45 | DI.MRI_ITS ---
Exam(s) MR BRAIN WO EXAM: MR BRAIN WO CLINICAL HISTORY: MS, progressive disease,g35 TECHNIQUE: Multiplanar multisequence MRI of the brain was performed. COMPARISON: MR MR BRAIN WO from 09/29/2023 FINDINGS: VENTRICLES AND EXTRA AXIAL SPACES: Normal in size and morphology for the patient's age. MIDLINE SHIFT: None. CEREBRAL PARENCHYMA: No focus of restricted diffusion to suggest acute infarct. No space-occupying lesion identified. There are stable high signal lesions in the periventricular white matter, greater superior to the lateral ventricles. There is involvement of the superior corpus callosum, unchanged. There is [id number] atrophy, disproportionate to the patient's age, unchanged. Findings appear stable from the prior exam. BRAINSTEM/CEREBELLUM: Normal. VISUALIZED PARANASAL SINUSES: Clear tiny mucous retention cyst versus polyp in the left maxillary sinus. MASTOIDS:Clear. Vasculature: Normal flow void. PITUITARY GLAND: Unremarkable. ORBITS: Unremarkable. IMPRESSION: Stable appearance of periventricular white matter and corpus callosum lesions. No new abnormalities are identified. DATA REPOSITORY:
== END 2025-03-24 05:49 ==
PROVIDERS: PCP Nurse Practitioner Family; Visit Provider Psychiatry & Neurology Neurology
DX: Q04.0 Congenital malformations of corpus callosum (principal); R90.82 White matter disease, unspecified
CPT/HCPCS: 70551

== ENCOUNTER → 2025-04-11 09:55 | Outpatient (BNVA) | payer MEDICARE, SELFPAY | PROVIDERS: PCP Nurse Practitioner Family; Referring Provider Nurse Practitioner Family; Visit Provider Psychiatry & Neurology Neurology | DX: G35.D Multiple sclerosis, unspecified (principal); F41.1 Generalized anxiety disorder; H46.9 Unspecified optic neuritis; R27.0 Ataxia, unspecified; K59.00 Constipation, unspecified; R32 Unspecified urinary incontinence | CPT/HCPCS: 99214 ==